=== PATIENT | male | born 1980 | race Caucasian/White ===

== ENCOUNTER 2020-09-03 15:04 | Emergency (ER) | payer OTHER, SELFPAY ==
--- NOTE | ~2020-09-03 | XR_ITS ---
EXAMINATION: XR SHOULDER, RIGHT CLINICAL INFORMATION: Fall, pain COMPARISON: None TECHNIQUE: The right shoulder is imaged in 3 views. FINDINGS: There is a curvilinear ossification 1.0 x 1.3 cm adjacent to the anterior inferior glenoid neck likely sequela from prior injury. There is no visible radiolucent fracture line and no dislocation. The acromioclavicular alignment is normal. There is fine mineralization adjacent to the greater tuberosity and small spur superior humeral head. The right lung apex is well expanded and shows no pneumothorax or pleural reaction. XR/XR shoulder RT min 2V IMPRESSION: 1. Ossific fragment 1.0 x 1.3 cm adjacent to the anterior inferior glenoid neck of uncertain chronicity. Finding may be related to old anterior dislocation, although acute bony injury cannot be excluded. 2. No dislocation. Acromioclavicular alignment normal.
[2020-09-03 16:08] VITALS: BP 146/83; PULSE 88; RESP 20; TEMP 36.9; O2SAT 99; BMI 45.4
--- NOTE | 2020-09-03 17:01 | ED.EXTPRO ---
HPI - Extremity Problem General Chief complaint: Extremity Injury, Upper Stated complaint: shoulder inj Time Seen by Provider: 09/03/20 17:01 Source: patient Mode of arrival: ambulatory Limitations: no limitations History of Present Illness HPI Narrative: 39 y/o male presenting with shoulder pain after he sustained a fall while playing volleyball. He states he felt his shoulder pop forward when he fell and when he got up it went back into place. This recurred when he tried to move his right arm upward. He works at [employer] where they placed him in a sling and told him to come to the ER for evaluation. He has continued pain with palpation and movement of his arm. He denies numbness or tingling. No other injuries. He is right hand dominant. MD Complaint: joint paint Pain Consistency: intermittent Location: right and upper extremity Quality: aching Radiation: none Relieving factors: cold therapy and immobilization Exacerbating factors: range of motion and palpation Associated symptoms: denies other symptoms Related Data Previous Rx's Medication Instructions Recorded ibuprofen 600 mg PO Q8H PRN #15 tab 09/03/20 Allergies Allergy/AdvReac Type Severity Reaction Status Date / Time No Known Allergies Allergy Verified 09/03/20 16:14 Review of Systems Review of Systems: Constitutional: No Fever, No Chills Gastrointestinal: No Nausea, No Vomiting Musculoskeletal: + joint pain, No Myalgias Skin: No Skin Lesions, No rash Neuro: No Weakness, No Numbness Heme/Lymph: No Bruising, No Lymphadenopathy PMFSH Past Medical History Attestation statement: The following information was validated with the patient. Medical History (Updated 09/03/20 @ 17:26 by CARA Ruiz) No known health problems Social History Social History Advance Directives: No Advance Directives Information Provided: Yes Physical Exam Vital Signs: Vital Signs: Last Vital Signs Temp 98.5 F 09/03/20 16:08 Pulse 88 09/03/20 16:08 Resp 20 09/03/20 16:08 BP 146/83 H 09/03/20 16:08 Pulse Ox 99 09/03/20 16:08 Body Mass Index 45.4 Appearance: Alert. Oriented X3. No acute distress. HEENT: normal inspection CVS: Normal heart rate and rhythm. Pulses normal. Respiratory: No respiratory distress. Skin: Skin warm and dry. Normal skin color. Normal skin turgor. No rashes. Extremities: right shoulder in immobilizer, normal inspection. no palpable dislocations. No ecchymosis or skin changes. Tenderness along anterior and posterior right shoulder, no point tenderness, no clavicular tenderness. AC joint feels normal. Sore with active ROM. passive ROM not assessed Neuro: Oriented X 3. No motor deficit. No sensory deficit. Bilateral hand grasp normal. Course Course Course Narrative: 39 y/o male presenting with right shoulder pain s/p fall during volleyball. Clinical presentation and history are consistent with anterior shoulder dislocation with spontaneous reduction x2. XR is negative for acute fracture or continued dislocation. Will plan to keep immobilized given risk of recurrance. NSAID prescribed for pain control and will refer to Ortho for further management. Patient is stable for d/c. Discharge Plan Discharge Clinical Impression: Acute shoulder pain Qualifiers: Laterality: right Qualified Code(s): M25.511 - Pain in right shoulder Patient Disposition: Home, Self-Care Instructions: Shoulder Dislocation (ED), Shoulder Immobilizer (ED) Additional Instructions: Your x-ray today showed no acute fractures or dislocations. You most likely dislocated and relocated your shoulder on your own. Recommend keeping your right arm in the sling to allow your shoulder to heal. Rest. Limit use of your right arm. Take Motrin 600 mg every 6 hours as needed for pain. Follow up with the Orthopedic doctors early next week for further assessment and management. Prescriptions: New ibuprofen 600 mg tablet 600 mg PO Q8H PRN (Reason: pain) Qty: 15 RF: 0 Referrals: [facility] [Provider Group] - 2 days Marcos Lui MD [Physician] - 2 days (right anterior shoulder dislocation) Stand Alone Forms: Work/School Release Interventions: ED Discharge Assessment Last Done: 09/03/20 17:45 Discharge Date/Time: 09/03/20 17:47
== END 2020-09-03 17:47 | disposition home or self-care (01) ==
PROVIDERS: Emergency Provider Internal Medicine
DX: M25.511 Pain in right shoulder (principal)
CPT/HCPCS: 73030; 99284

== ENCOUNTER → 2020-09-05 13:06 | Outpatient (BNVA) | payer OTHER, SELFPAY | PROVIDERS: Visit Provider Physician Assistant Medical | DX: S43.004A Unspecified dislocation of right shoulder joint, initial encounter (principal); X50.3XXA Overexertion from repetitive movements, initial encounter | CPT/HCPCS: 99203 ==

== ENCOUNTER → 2020-09-08 12:30 | Outpatient (BNVA) | payer OTHER, SELFPAY | PROVIDERS: Visit Provider Physician Assistant | DX: S43.491A Other sprain of right shoulder joint, initial encounter (principal) | CPT/HCPCS: 99202 ==

== ENCOUNTER → 2020-09-19 09:39 | Outpatient (BNVA) | payer OTHER, SELFPAY | PROVIDERS: Visit Provider Physician Assistant Medical | DX: S43.004A Unspecified dislocation of right shoulder joint, initial encounter (principal); X58.XXXA Exposure to other specified factors, initial encounter | CPT/HCPCS: 99213 ==

== ENCOUNTER → 2020-09-26 10:42 | Outpatient (BNVA) | payer OTHER, SELFPAY | PROVIDERS: Visit Provider Physician Assistant Medical | DX: S43.004D Unspecified dislocation of right shoulder joint, subsequent encounter (principal); X58.XXXD Exposure to other specified factors, subsequent encounter | CPT/HCPCS: 99213 ==